=== PATIENT | male | born 2005 | race Caucasian/White ===

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

== ENCOUNTER → 2023-10-28 | Outpatient (REF) | payer BC | LOC: M LAB REF 12:44 | PROVIDERS: ATTEND Physician Assistant Medical | DX: R68.82 Decreased libido (principal) ==

== ENCOUNTER → 2024-10-30 | Outpatient (CLI) | payer BC | LOC: M WUC 11:35 | PROVIDERS: ATTEND Physician Assistant Medical | DX: M25.522 Pain in left elbow (principal); M79.632 Pain in left forearm ==